=== PATIENT | male | born 1995 | race Caucasian/White ===

== ENCOUNTER 2017-04-14 13:41 | Emergency (ER) | payer OTHER ==
[~2017-04-14] VITALS: Ht 63 cm; Wt 72.7 kg
[2017-04-14 13:47] VITALS: BP 133/71; PULSE 82; TEMP 98.7
[2017-04-14] MEDS ORDERED: PERCOCET 325 MG1 TA2 PO (13:50)
== END 2017-04-14 16:37 | disposition home or self-care (01) ==
LOC: COL.ER 13:41
DX: R10.11 Right upper quadrant pain (principal)

== ENCOUNTER 2017-08-01 15:37 | Emergency (ER) | payer OTHER ==
[~2017-08-01] VITALS: Ht 160 cm; Wt 72.7 kg
[~2017-08-01 15:37] MED LIST: PERCOCET 325 MG1 TA2 PO
[2017-08-01 15:39] VITALS: TEMP 98.3
[2017-08-01 16:36] LABS: BASO # 0.1 (0.0-0.2); BASO % 1.2 % (0.0-2.0); EOS # 0.3 (0.0-0.7); EOS % 4.1 % (0-4.0); GRAN # 4.2 (1.4-6.5); GRAN % 63.6 % (42.2-75.2); HEMATOCRIT 46.8 % (42.0-52.0); HEMOGLOBIN 16.3 g/dl (13.5-18.0); LYMPH # 1.4 (1.2-3.4); LYMPH % 21.7 % (20.0-51.0); MEAN CELL VOLUME 82 fl (80.0-100.0); MEAN CORPUSCULAR HEMOGLOBIN 28 pg (27.0-31.0); MEAN CORPUSCULAR HGB CONC 35 g/dl (33.0-37.0); MEAN PLATELET VOLUME 10.7 fl (7.4-10.4); MONO # 0.6 (0.1-0.6); MONO % 9.2 % (1.7-9.3); PLATELET COUNT 246 K/mm3 (130-400); RED BLOOD COUNT 5.73 M/mm3 (4.20-5.60); WHITE BLOOD COUNT 6.5 K/mm3 (4.8-10.8)
[2017-08-01 16:54] LABS: ALANINE AMINOTRANSFERASE 55 U/L (21-72); ALKALINE PHOSPHATASE 102 U/L (50-136); AMYLASE 67 U/L (30-110); ANION GAP 12 mmol/L (7-16); BILIRUBIN,TOTAL 0.8 mg/dL (0.0-1.0); BLOOD UREA NITROGEN 15 mg/dL (9-20); CALCIUM 9.8 mg/dL (8.4-10.2); CARBON DIOXIDE 27 mmol/L (22-30); CHLORIDE 100 mmol/L (98-107); CREATININE, serum 0.86 mg/dL (0.66-1.25); GLUCOSE 88 mg/dL (74-106); LIPASE 56 U/L (23-300); POTASSIUM 4.5 mmol/L (3.4-5.0); SODIUM 139 mmol/L (137-145); TOTAL PROTEIN 8.1 gm/dL (6.4-8.2)
[2017-08-01 16:59] LABS: C-REACTIVE PROTEIN < 0.5 mg/dL (0.0-0.9)
[2017-08-01] MEDS ORDERED: CARAFATE 1GM1 G PO (17:12)
[2017-08-01 17:23] VITALS: BP 132/83; PULSE 71
[2017-08-01 17:48] LABS: COLLECTION METHOD CLEAN CATCH
[2017-08-01 18:24] LABS: MUCOUS Present /lpf; SQUAMOUS EPITHELIAL None Seen /hpf; URINE BACTERIA None Seen /hpf; URINE RBC None Seen /hpf; URINE WBC None Seen /hpf
[2017-08-01 18:33] LABS: PH 6 (5-8); URINE APPEARANCE Clear; URINE COLOR Yellow
[2017-08-01 18:34] LABS: URINE KETONE Negative (NEGATIVE); URINE PROTEIN(semi-quant) Negative (NEGATIVE)
[2017-08-01 18:35] LABS: URINE BILIRUBIN Negative (NEGATIVE); URINE BLOOD Negative (NEGATIVE); URINE GLUCOSE Negative (NEGATIVE); URINE LEUKOCYTE ESTERASE Negative (NEGATIVE); URINE UROBILINOGEN Negative (NEGATIVE)
== END 2017-08-01 17:32 | disposition home or self-care (01) ==
LOC: COL.ER 15:37
PROVIDERS: Emergency Medicine
DX: K29.70 Gastritis, unspecified, without bleeding (principal); K21.9 Gastro-esophageal reflux disease without esophagitis
CPT/HCPCS: J2765; J3010; J7030

== ENCOUNTER → 2017-08-28 | Outpatient (CLI) | payer OTHER ==
[~2017-08-28] MED LIST changes: +CARAFATE 1GM1 G PO
== END ==
LOC: COL.RAD 08-21 16:51
DX: R10.11 Right upper quadrant pain (principal)
CPT/HCPCS: A9537; J2270

== ENCOUNTER 2017-12-13 23:43 | Emergency (ER) | payer OTHER ==
[~2017-12-13] VITALS: Ht 160 cm; Wt 77.3 kg
[2017-12-14 00:22] VITALS: TEMP 99.2
[2017-12-14 00:30] LABS: BASO # 0.1 (0.0-0.2); BASO % 0.9 % (0.0-2.0); EOS % 0.7 % (0-4.0); GRAN # 4.4 (1.4-6.5); GRAN % 76.8 % (42.2-75.2); HEMATOCRIT 44.6 % (42.0-52.0); HEMOGLOBIN 15.3 g/dl (13.5-18.0); LYMPH # 0.9 (1.2-3.4); LYMPH % 16.2 % (20.0-51.0); MEAN CELL VOLUME 81 fl (80.0-100.0); MEAN CORPUSCULAR HEMOGLOBIN 28 pg (27.0-31.0); MEAN CORPUSCULAR HGB CONC 34 g/dl (33.0-37.0); MEAN PLATELET VOLUME 10.3 fl (7.4-10.4); MONO # 0.3 (0.1-0.6); MONO % 4.9 % (1.7-9.3); PLATELET COUNT 259 K/mm3 (130-400); RED BLOOD COUNT 5.53 M/mm3 (4.20-5.60); REDCELL DISTRIBUTION WIDTH-CV 13.4 % (11.5-14.5)
[2017-12-14 00:41] LABS: TRICYCLIC ANTIDEPRESS URINE NEGATIVE
[2017-12-14 00:42] LABS: ALANINE AMINOTRANSFERASE 54 U/L (21-72); ALBUMIN 4.6 gm/dL (3.5-5.0); ALKALINE PHOSPHATASE 62 U/L (50-136); ANION GAP 21 mmol/L (7-16); AST,SGOT 25 U/L (15-37); BILIRUBIN,TOTAL 0.3 mg/dL (0.0-1.0); BLOOD UREA NITROGEN 7 mg/dL (9-20); CALCIUM 8.9 mg/dL (8.4-10.2); CARBON DIOXIDE 24 mmol/L (22-30); CHLORIDE 99 mmol/L (98-107); CREATININE, serum 0.93 mg/dL (0.66-1.25); GLUCOSE 107 mg/dL (74-106); POTASSIUM 4.4 mmol/L (3.4-5.0); SODIUM 144 mmol/L (137-145); TOTAL PROTEIN 8.2 gm/dL (6.4-8.2)
[2017-12-14 00:51] LABS: ACETAMINOPHEN < 10 ug/mL (10-30); ALCOHOL(ethanol),MEDICAL 81 mg/dL; SALICYLATE < 1.0 mg/dL
[2017-12-14 03:50] VITALS: BP 134/74; PULSE 108
== END 2017-12-14 03:40 | disposition home or self-care (01) ==
LOC: COL.ER 23:43
PROVIDERS: Emergency Medicine
DX: F32.9 Major depressive disorder, single episode, unspecified (principal); F10.129 Alcohol abuse with intoxication, unspecified; Y90.4 Blood alcohol level of 80-99 mg/100 ml

== ENCOUNTER 2018-03-18 22:17 | Emergency (ER) | payer OTHER ==
[~2018-03-18] VITALS: Ht 160 cm; Wt 70.5 kg
[2018-03-18 22:23] VITALS: BP 108/74; TEMP 98
[2018-03-18] MEDS ORDERED: WELLBUTRIN XL150 MG PO (22:26)
[2018-03-18 23:30] LABS: TRICYCLIC ANTIDEPRESS URINE NEGATIVE
[2018-03-19 00:20] VITALS: PULSE 86
== END 2018-03-19 00:20 | disposition home or self-care (01) ==
LOC: COL.ER 22:17
PROVIDERS: Nurse Practitioner
DX: F41.9 Anxiety disorder, unspecified (principal); R07.89 Other chest pain; F32.9 Major depressive disorder, single episode, unspecified; Z90.49 Acquired absence of other specified parts of digestive tract